=== PATIENT | male | born 1965 | race Caucasian/White ===

== ENCOUNTER 2020-02-06 12:05 | Day surgery (SDC) | payer MEDICARE, SELFPAY ==
--- NOTE | 2020-02-06 12:13 | EKG12_ITS ---
Test Reason : PRE-OP Blood Pressure : / mmHG Vent. Rate : 087 BPM Atrial Rate : 087 BPM P-R Int : 158 ms QRS Dur : 100 ms QT Int : 370 ms P-R-T Axes : 039 042 048 degrees QTc Int : 445 ms Normal sinus rhythm Normal ECG When compared with ECG of 13-JUN-2014 15:07, No significant change was found Confirmed by DONIS LA, ONDINA ([id number]), supervising editor trailer ANN ZAMUDIO ([id number]) on 02/10/2020 7:53:44 AM Referred By: Julius Ha Confirmed By:ONDINA DYKES MD
[2020-02-06 12:22] VITALS: BP 122/75; PULSE 80; RESP 16; TEMP 36.8; O2SAT 98; BMI 27.6
[2020-02-06] MEDS: Lactated Ringers 1,000 ML 100 ML IV (12:39)
[2020-02-06 12:40] LABS: Hematocrit 43.7 % (40-54); Hemoglobin 14.6 g/dL (13.0-16.5); Mean Corp Hgb Conc 33.4 g/dL (32-36); Mean Corpuscular Hgb 31.3 pg (27.0-32.0); Mean Corpuscular Volume 93.6 fL (80-94); Mean Platelet Vol. 10.1 fl (6.2-12.0); Platelet Count 149 K/mm3 (150-450); RBC Distribution Width CV 13.2 % (11.6-14.6); RBC Distribution Width SD 45.1 fl (35.1-43.9); Red Blood Count 4.67 M/mm3 (4.6-6.2); White Blood Count 5.7 K/mm3 (4.4-11.0)
[2020-02-06 12:45] LABS: Bedside Glucose 105 mg/dL (70-110)
[2020-02-06 13:11] LABS: Hemoglobin A1c 6.3 % (4.2-6.3)
[2020-02-06 13:13] LABS: Anion Gap 3 (5-15); BUN 12 mg/dL (7-18); BUN/Creat Ratio 10.8 RATIO (10-20); Calcium,Total 8.6 mg/dL (8.5-10.1); Chloride 111 mmol/L (98-107); Creatinine, Serum 1.11 mg/dL (0.70-1.30); EST Glomerular Filtration Rate 74 mL/min (>60); Est Glom Filt Rate - Afr Amer 89 mL/min (>60); Estimated Creatinine Clearance 86.98 ml/min; Glucose 116 mg/dL (74-106); Potassium 3.7 mmol/L (3.5-5.1); Sodium Level 141 mmol/L (136-145)
--- NOTE | 2020-02-06 13:40 | SEP_PTH ---
PATIENT: RENETTA CALL[place]AN [place] [facility] [id number] AGE/SX: 54/M ROOM: RE02/06/[address]: Dr. Julius Ha MD : 1965 BED: DIS: 02/06/2020 SPEC #: [id number] RECD: 02/09/20 06:57 STATUS: JANINA MOLLY #: [id number] JUVENAL: 02/06/20 13:[address]: Julius Ha DEPT: SURGICAL PATHOLOGY RECD BY: Rojas Elder ENTERED: 02/09/20 06:58 SP TYPE: SEPTUM OTHR DR: Lillian Dennis, SENIOR CORPORATE ACCOUNTANT-C Tissues: Nasal septum, NOS Procedures: Decalcification bone/plaque Surgery Specimen Level III HEADER OPERATION: Septoplasty, submucous resection inferior turbinates PRE-OP DIAGNOSIS: Incompetence of nasal valve, hypertrophy of nasal turbinates, deviated nasal septum TISSUE SUBMITTED: Nasal septum contents MICROSCOPIC DIAGNOSIS Nasal septum, septoplasty: Fragments of hyaline cartilage and bone with focal reparative and reactive change (clinically deviated septum). AM:zulma 02/12/20 MICROSCOPIC DESCRIPTION Slides are reviewed. GROSS DESCRIPTION Received in fixative is one container labeled with the patient's name and designated nasal septum contents. The specimen consists of multiple fragments of cartilage and bone that in aggregate measure 3 x 2.5 x 0.3 cm. Also present in the container is a specimen cloth bag containing small amount of brownish fragments of tissue measuring 0.5 x 0.1 x 0.1 cm. The entire specimen is submitted in one cassette after decalcification. / SJ:zulma 02/09/20 TC:5 CPT: 54870, 77945
[2020-02-06] MEDS: Bacitracin 500 UNITS/GM PACKET (14:59)
[2020-02-06] MEDS: Lidocaine 4% 50 ML Bottle (15:00)
[2020-02-06] MEDS: Oxymetazoline 0.05% 1 SPRAY SPRAY.BTL 15 SPRAY (15:00)
--- NOTE | 2020-02-06 15:37 | PCM.OPRPT ---
Problem List (1) Deviated nasal septum Status: Chronic (2) Hypertrophy of inferior nasal turbinate Status: Chronic Report of Operation Date of Procedure: 02/06/20 Pre-Operative Diagnosis: Deviated nasal septum, hypertrophy of inferior nasal turbinates Post-Operative Diagnosis: Same Surgery/Procedure Performed:: Septoplatsty, submucous resection of inferior nasal turbinates Description of Surgical Findings:: Jesus is a 54-year-old male complains of chronic nasal obstruction refractory to medical therapy. He was noted to have deviation nasal septum hypertrophied inferior turbinates and collapse of the nasal valves however this was felt to be secondary to obstruction from the turbinate hypertrophy and septal deviation and the above procedure was offered in hopes of improvement and he was eager to proceed. The risks, alternatives, potential complications, and benefits were discussed at length and any questions answered to the patient and/or caregiver's satisfaction. Witnessed informed consent was obtained in the office, and the patient and/or caregiver was agreeable to proceed. Procedure went as follows: The patient was identified in the preoperative holding and brought to the operating room, was placed under general anesthesia and intubated. When appropriate anesthesia was obtained, pledgets soaked in a 50-50 mixture of oxymetazoline and 4% topical lidocaine were placed to decongest the nasal mucosa. The nasal septum was then injected beginning on the left side with 1% lidocaine with 100,000 epinephrine for a total of 5 mL. The pledgets were then removed and the left nasal cavity examined. There was noted to be significant nasal septal deviation to the right. Using a 15 blade scalpel, a hemitransfixion incision was then made on the left side and using the Roosevelt elevator a subperichondrial/periosteal flap was elevated. The septum was then transected at the bony cartilaginous junction and a similar flap raised on the contralateral side. Using a Daly forceps, the septum was then sharply transected superiorly and the deviated portions removed with a Regan forceps. Any inferior bony spur was then removed with a chisel allowing for midline placement of the nasal septum. The hemitransfixion incision was then closed with interrupted 4-0 chromic gut suture followed by a 4-0 plain quilting suture to reapproximate the mucosal flaps. Again beginning on the left side a 15 blade scalpel was used to create a stab incision in the anterior aspect of the turbinate. A caudal elevator was then used to elevate a submucosal plane. Using the microdebrider, the anterior bony and intervening submucosal tissue was then removed resulting in reduction of the inferior turbinate. Similar procedure was then completed on the contralateral side. Tavares splints were then applied after coating with bacitracin ointment and secured to the columella with a single 3-0 Prolene suture. The patient was then returned to anesthesia, was revived and extubated having tolerated the procedure well without complications. Type of Anesthesia:: General Anesthesiologist: Theo Garcia Special Medications: none Specimen's removed: nasal septal and turbinate contents Drains: none Estimated Blood Loss (mL): 25 mL Fluids Replaced: 1100 mL Grafts/Implants Used: Tavares splints - Complications none - Admit VTE Documentation VTE Present on Admission: No VTE Mechan Device Prophylaxis: SCD's VTE Pharm Prophylaxis ordered?: No
--- NOTE | 2020-02-06 15:43 | DCINST_ITS ---
- Discharge Diagnoses Current Active Problems: Current Active and Chronic Problems Deviated nasal septum (Chronic) Hypertrophy of inferior nasal turbinate (Chronic) You will use the following diet at home:: No restrictions Discharge Activity: Return to Normal Activity Call your doctor if your incision/area has: Sudden Increased Bleeding Call your doctor if you observe: Fever of 101 or Higher, Uncontrolled pain Allergies/Adverse Reactions: Allergies No Known Allergies Allergy (Verified 02/06/20 12:14) Medications to take at Discharge Gabapentin [Neurontin] 800 mg PO TID 06/13/14 Omeprazole [Prilosec] 20 mg PO DAILY 06/13/14 Paroxetine HCl 20 mg PO DAILY 06/13/14 Fenofibrate [Tricor] 145 mg PO DAILY 01/30/20 Oxycodone HCl/Acetaminophen [Oxycodone-Acetaminophen 5-325] 1 ea PO TID 01/30/20 Rosuvastatin Calcium [Crestor] 10 mg PO QHS 01/30/20 cycloBENZAPRine HCl [Flexeril] 10 mg PO PRN PRN 01/30/20 Primary Care Physician: Lillian Dennis NP-C [Primary Care Provider] - Test Results: Test results from this visit will be discussed in further detail at your follow- up appointment, if applicable. Please Follow Up With: Julius Ha MD When: 5 days
[2020-02-06 15:45] VITALS: BP 122/75; BP 137/79; PULSE 94; RESP 14; TEMP 36.3; O2SAT 99
[2020-02-06 16:00] VITALS: BP 120/84; BP 122/75; PULSE 83; RESP 16; O2SAT 97
[2020-02-06 16:11] LABS: Bedside Glucose 119 mg/dL (70-110)
[2020-02-06 16:15] VITALS: BP 111/70; BP 122/75; PULSE 78; RESP 16; O2SAT 97
[2020-02-06 16:27] VITALS: BP 115/79; BP 122/75; PULSE 79; RESP 16; TEMP 36.4; O2SAT 99
[2020-02-06 17:12] VITALS: BP 120/80; BP 122/75; PULSE 76; RESP 16; TEMP 36.6; O2SAT 95
== END 2020-02-06 17:16 | disposition home or self-care (01) ==
LOC: SDC 12:06 → AC 12:08
PROVIDERS: Anesthesiology; PCP Nurse Practitioner Family; Referring Provider Otolaryngology; Visit Provider Otolaryngology
PROC: (CPT 30520; principal; 2020-02-06 13:25)
DX: J34.2 Deviated nasal septum (principal); J34.3 Hypertrophy of nasal turbinates; J30.0 Vasomotor rhinitis; J34.89 Other specified disorders of nose and nasal sinuses; E11.9 Type 2 diabetes mellitus without complications; I10 Essential (primary) hypertension; E78.5 Hyperlipidemia, unspecified; J45.909 Unspecified asthma, uncomplicated; K21.9 Gastro-esophageal reflux disease without esophagitis; F32.9 Major depressive disorder, single episode, unspecified; F17.200 Nicotine dependence, unspecified, uncomplicated; Z79.899 Other long term (current) drug therapy
CPT/HCPCS: 00160; 30140; 30520; 36415; 80048; 82962; 83036; 85027; 88304; 88311; 93005; J7120; J2405

== ENCOUNTER → 2023-10-01 | Outpatient (CLI) | payer MEDICARE, SELFPAY ==
--- NOTE | 2023-10-01 13:48 | ART_ITS ---
Reason For Study: PVD Procedure A bilateral lower extremity continuous wave Doppler with analog waveform analysis,segmental pressures,and ankle brachial indexes without exercise. Left Segmental Pressures Left brachial= 114mmHg. Left posterior tibial artery = 149mmHg. Left dorsalis pedis artery = 127mmHg. Left digit = 111 mmHg. The left dorsalis pedis waveforms are triphasic. The left posterior tibial artery waveforms are triphasic. Right Segmental Pressures Right brachial= 120mmHg. Right posterior tibial artery = 154mmHg. Right dorsalis pedis artery = 122mmHg. Right digit = 85 mmHg. The right dorsalis pedis waveforms are triphasic. The right posterior tibial artery waveforms are triphasic. Indices The right ankle brachial index by the dorsalis pedis is 1.02. The right ankle brachial index by the posterior tibial artery is 1.28. The right digital-brachial index is 0.71. The left ankle brachial index by the dorsalis pedis is 1.06. The left ankle brachial index by the posterior tibial artery is 1.24. The left digital-brachial index is 0.93. VL/Lower Ext Art Exam w/o Exercis Interpretation Summary Triphasic Doppler waveforms are noted at ankle level bilaterally. Pulse-volume recordings appear satisfactory at all levels bilaterally. Resting ankle-brachial indices are norm al bilaterally. Digital-brachial indices are normal bilaterally. There is no evidence of significant arterial occlusive disease in the lower ext remities bilaterally. Ordering Physician: Will Abbasi Referring Physician: Natalie Newell Performed By: Mikael Brown, RVT
== END | disposition home or self-care (01) ==
PROVIDERS: PCP Registered Nurse; Referring Provider Podiatrist; Visit Provider Podiatrist
DX: I73.89 Other specified peripheral vascular diseases (principal)
CPT/HCPCS: 93923